=== PATIENT | male | born 1985 | race Caucasian/White ===

== ENCOUNTER 2020-08-27 18:40 | Emergency (ER) | payer BC, MEDICAID ==
[~2020-08-27] VITALS: Ht 175.3 cm; Wt 86.0 kg
--- NOTE | 2020-08-27 19:54 | NUR ---
PT AMBULATED BACK TO ROOM FROM TRIAGE. PT STATED THAT HE HAS A DENTAL ABSCESS ON THE RIGHT SIDE X3 WEEKS. TODAY HE WENT TO URGENT CARE A GOT A PRESCRIPTION FOR PCN. PT NOTED INCREASED PAIN AND SWELLING TO RIGHT SIDE OF FACE. PT DENIES ANY DIFFICULTY BREATHING.
[2020-08-27] MEDS ORDERED: HYDROcodone/APAP 5/325 TABLET ONE (20:28)
[2020-08-27] MEDS ORDERED: ONDANSETRON ODT 4 MG ONE (20:29)
[2020-08-27] MEDS ORDERED: ONDANSETRON ODT 4 MG PO ONE (20:30)
[2020-08-27] MEDS ORDERED: HYDROcodone/APAP 5/325 TABLET PO ONE (20:30)
--- NOTE | 2020-08-27 20:30 | NUR ---
PAIN MEDICATION GIVEN PER ORDER. PT RESTING COMFORTABLY IN [facility].
--- NOTE | 2020-08-27 20:58 | NUR ---
Report received from BRADY Loewry. This RN to assume care.
[2020-08-27 21:38] VITALS: BP 142/102
== END 2020-08-27 21:39 | disposition home or self-care (01) ==
LOC: ED 21:33
DX: K08.89 Other specified disorders of teeth and supporting structures (principal); F17.200 Nicotine dependence, unspecified, uncomplicated
CPT/HCPCS: 99283; Q0162